=== PATIENT | female | born 1940 | race Caucasian/White ===

== ENCOUNTER 2016-12-27 16:46 | Emergency (ER) | payer OTHER ==
[~2016-12-27] VITALS: Ht 167.6 cm; Wt 81.7 kg
[2016-12-27] MEDS ORDERED: ARICEPT 5 MG TAB5 MG PO (17:12)
[2016-12-27] MEDS ORDERED: FLONASE 0.05%50 MCG (17:13)
[2016-12-27] MEDS ORDERED: GABAPENTIN 100100 MG PO (17:14)
[2016-12-27] MEDS ORDERED: SEROQUEL 50 MG50 MG PO (17:15)
[2016-12-27] MEDS ORDERED: NAMENDA 10 MG T10 MG PO (17:15)
[2016-12-27] MEDS ORDERED: ZOCOR20 MG PO (17:16)
[2016-12-27 17:43] LABS: ABSOLUTE NEUTROPHILS 4.8 thou/uL (1.4-8.2); BASOPHILS 0.5 % (0.0-2.0); EOSINOPHILS 4.3 % (0.0-3.0); HEMOGLOBIN 14.9 gm/dL (12.0-15.0); LYMPHOCYTES 27.5 % (24.0-44.0); MCH 29.8 pg (26.0-34.0); MCHC 33.9 g/dL (28.0-37.0); MONOCYTES 5.8 % (1.0-8.0); PLATELET COUNT 156 thou/uL (150-400); POLYS 61.9 % (36.0-66.0); RDW 13.7 % (10.5-14.5); WBC 7.8 thou/uL (4.0-11.0)
[2016-12-27 17:46] LABS: MANUAL DIFF NO
[2016-12-27 17:52] LABS: ANION GAP 8 mmol/L (7-16); BUN 24 mg/dL (7-18); CALCIUM 9.2 mg/dL (8.5-10.1); CHLORIDE 103 mmol/L (98-107); CO2 26 mmol/L (21-32); CREATININE 0.8 mg/dL (0.6-1.0); GLUCOSE 95 mg/dL (74-106); POTASSIUM 4.3 mmol/L (3.5-5.1); SODIUM 137 mmol/L (136-145)
[2016-12-27 17:53] LABS: URINE BILIRUBIN NEGATIVE (Negative); URINE BLOOD TRACE (Negative); URINE COLOR YELLOW; URINE GLUCOSE-RANDOM* NEGATIVE (Negative); URINE KETONES NEGATIVE (Negative); URINE NITRITE NEGATIVE (Negative); URINE PROTEIN (DIPSTICK) NEGATIVE (Negative); URINE UROBILINOGEN 0.2 E.U./dl (0.2-1.0)
[2016-12-27 17:56] LABS: SALICYLATE < 2.8 mg/dL (2.8-20.0)
[2016-12-27 17:57] LABS: ACETAMINOPHEN < 2 ug/mL (10-30)
[2016-12-27 18:10] LABS: AMP/METHAMP Negative (Negative); BARBITURATES Negative (Negative); BENZODIAZEPINES Negative (Negative); COCAINE Negative (Negative); METHADONE Negative (Negative); OPIATES Negative (Negative); PCP Negative (Negative); THC Negative (Negative)
[2016-12-27 18:13] LABS: CASTS None Seen /LPF (None Seen); SQUAMOUS >10 Many /LPF (0-3); URINE WBC 6-15 Few /HPF (0-5)
[2016-12-27 18:14] LABS: BACTERIA 1-9 Few /HPF (None Seen); CRYSTALS None Seen /LPF (None Seen); URINE RBC 0-2 Rare /HPF (0-2)
[2016-12-27 22:22] VITALS: BP 126/48
== END 2016-12-27 22:20 ==
LOC: ER 16:46
PROVIDERS: Nurse Practitioner
DX: F03.91 Unspecified dementia, unspecified severity, with behavioral disturbance (principal)